=== PATIENT | female | born 1960 | race American Indian/Alaskan Native ===

== ENCOUNTER 2016-12-30 13:57 | Emergency (ER) | payer MEDICAID ==
[~2016-12-30] VITALS: Ht 162.6 cm; Wt 67.3 kg
[2016-12-30 15:30] VITALS: BP 131/85
== END 2016-12-30 15:45 | disposition home or self-care (01) ==
LOC: ED 15:30
DX: R07.89 Other chest pain (principal); Z90.89 Acquired absence of other organs
CPT/HCPCS: 93005; 99283

== ENCOUNTER 2018-05-23 13:51 | Emergency (ER) | payer MEDICAID ==
[~2018-05-23] VITALS: Ht 162.6 cm; Wt 67.3 kg
[2018-05-23 15:36] VITALS: BP 104/70
== END 2018-05-23 16:22 | disposition home or self-care (01) ==
LOC: ED 14:47
DX: M25.572 Pain in left ankle and joints of left foot (principal); M79.672 Pain in left foot; G89.29 Other chronic pain; Z87.442 Personal history of urinary calculi
CPT/HCPCS: 99284

== ENCOUNTER → 2020-10-03 | Outpatient (CLI) | payer MEDICAID | END | disposition home or self-care (01) | LOC: RAD 13:37 | PROVIDERS: ATTEND Family Medicine | DX: N28.89 Other specified disorders of kidney and ureter (principal); R31.9 Hematuria, unspecified; M47.816 Spondylosis without myelopathy or radiculopathy, lumbar region | CPT/HCPCS: 74176 ==